=== PATIENT | male | born 1990 | race Caucasian/White ===

== ENCOUNTER 2017-05-13 07:10 | Inpatient (IN) | payer SELFPAY ==
[~2017-05-13] VITALS: Ht 175.3 cm; Wt 69.9 kg
[2017-05-13] MEDS ORDERED: ONDANSETRON HCL 4MG/2ML VIAL IV STA (08:47)
[2017-05-13] MEDS ORDERED: SODIUM CHLORIDE 0.9% 1,000 ML IV ONE ×3 (08:47→12:55)
[2017-05-13] MEDS ORDERED: KETOROLAC 30MG/ML VIAL IV STA (08:47)
[2017-05-13 08:59] LABS: HEMATOCRIT. 56.4 % (42.0-52.0); MEAN CORPUSCULAR HEMOGLOBIN 30.2 pg (28.0-32.0); MEAN CORPUSCULAR VOLUME 89.6 fL (80.0-94.0); PLATELET 528 x1000/uL (130-400); RED BLOOD CELL COUNT 6.29 mill/uL (4.7-6.1); RED CELL DISTRIBUTION WIDTH 13.5 % (11.6-14.6)
[2017-05-13 09:14] LABS: PLATELET ESTIMATE INCREASED
[2017-05-13 09:25] LABS: CARBON DIOXIDE 22 mEq/L (21-32); CHLORIDE 95 mEq/L (98-107); ETHANOL BLOOD < 10 mg/dL
[2017-05-13] MEDS ORDERED: METOCLOPRAMIDE HCL 10MG/2ML VIAL IV ONE (09:30)
[2017-05-13] MEDS ORDERED: FAMOTIDINE 20MG/2ML VIAL IV ONE (09:30)
[2017-05-13 12:22] LABS: CLARITY URINE CLEAR (CLEAR); COLOR URINE STRAW (YELLOW); KETONES URINE NEGATIVE (NEGATIVE); LEUKOCYTE ESTERASE URINE NEGATIVE (NEGATIVE); NITRITE URINE NEGATIVE (NEGATIVE); OCCULT BLOOD URINE NEGATIVE (NEGATIVE); PROTEIN URINE NEGATIVE (NEGATIVE); UROBILINOGEN URINE 0.2 E.U./dL (0.2-1.0)
[2017-05-13 12:55] LABS: *AMPHETAMINES SCREEN URINE NEGATIVE (NEGATIVE); *BARBITURATES SCREEN URINE NEGATIVE (NEGATIVE); *BENZODIAZEPINES SCREEN URINE NEGATIVE (NEGATIVE); *COCAINE SCREEN URINE NEGATIVE (NEGATIVE); CANNABINOID URINE SCREEN NEGATIVE (NEGATIVE); METHADONE URINE SCREEN NEGATIVE (NEGATIVE); OPIATES URINE SCREEN NEGATIVE (NEGATIVE); PHENCYCLIDINE URINE SCREEN NEGATIVE (NEGATIVE)
[2017-05-13] MEDS ORDERED: DIPHENHYDRAMINE 50MG/ML VIAL IV PRN (13:15)
[2017-05-13] MEDS ORDERED: HYDROCODONE/ACETAMINOPHEN 10/325MG TABLET PO PRN (13:15)
[2017-05-13] MEDS ORDERED: DOCUSATE SODIUM 100MG CAPSULE PO PRN (13:15)
[2017-05-13] MEDS ORDERED: IPRATROPIUM/ALBUTEROL 0.5-3(2.5)MG/3ML NEB INH PRN (13:15)
[2017-05-13] MEDS ORDERED: MAGNESIUM/ALUMINUM HYDROXIDE/SIMETHICONE 30ML UDC PO PRN (13:15)
[2017-05-13] MEDS ORDERED: LORAZEPAM 0.5MG TABLET PO PRN (13:15)
[2017-05-13] MEDS ORDERED: NA PHOS,M-B/NA PHOS,DI-BA ENEMA 118ML PR PRN (13:15)
[2017-05-13] MEDS ORDERED: CLONIDINE 0.1MG TABLET PO PRN (13:15)
[2017-05-13] MEDS ORDERED: ONDANSETRON HCL 4MG/2ML VIAL IV PRN (13:15)
[2017-05-13] MEDS ORDERED: MORPHINE SULFATE 4 MG/ML CPJ (NOT FOR IM USE) IV STA (13:15)
[2017-05-13] MEDS ORDERED: GUAIFENESIN 200MG/10ML SUGAR FREE UDC PO PRN (13:15)
[2017-05-13] MEDS ORDERED: ACETAMINOPHEN 325MG TABLET PO PRN (13:15)
[2017-05-13] MEDS ORDERED: MORPHINE SULFATE 2 MG/ML CPJ (NOT FOR IM USE) IV PRN (13:15)
[2017-05-13 14:45] VITALS: BP 128/86
[2017-05-13 14:49] VITALS: BP 128/84
[2017-05-13] MEDS: PANTOPRAZOLE SODIUM 40 MG/VIAL IV SCH (15:54)
[2017-05-13 16:00] VITALS: BP 148/98
[2017-05-13] MEDS ORDERED: ENOXAPARIN 40MG/0.4ML SYR SUBCUT SCH (16:00)
[2017-05-13 16:30] VITALS: BP 138/83
[2017-05-13] MEDS ORDERED: LEVOFLOXACIN 500MG PREMIX 100 ML IV SCH (17:00)
[2017-05-13] MEDS: SODIUM CHLORIDE 0.45% 1,000 ML IV SCH (17:14)
[2017-05-13] MEDS: METRONIDAZOLE 500 MG PREMIX 100 ML IV SCH (17:15)
[2017-05-13] MEDS: SUCRALFATE 1 G/10 ML UDC PO SCH ×2 (17:15→20:31)
[2017-05-13 18:19] LABS: CARBON DIOXIDE 26 mEq/L (21-32); CHLORIDE 102 mEq/L (98-107)
[2017-05-13 18:22] LABS: TROPONIN I < 0.02 ng/mL (0.00-0.04)
[2017-05-13] MEDS: HYDROMORPHONE HCL/PF 2MG/ML CPJ IM PRN (19:39)
[2017-05-13 19:57] VITALS: BP 108/51
[2017-05-13] MEDS ORDERED: ZOLPIDEM TARTRATE 5MG TABLET PO PRN (22:15)
[2017-05-14] VITALS: BP 122/69
[2017-05-14] MEDS: METRONIDAZOLE 500 MG PREMIX 100 ML IV SCH ×2 (00:12→05:04)
[2017-05-14] MEDS: HYDROMORPHONE HCL/PF 2MG/ML CPJ IM PRN ×3 (00:19→09:41)
[2017-05-14] MEDS: SODIUM CHLORIDE 0.45% 1,000 ML IV SCH ×2 (00:36→09:42)
[2017-05-14 04:00] VITALS: BP 113/64
[2017-05-14] MEDS: SUCRALFATE 1 G/10 ML UDC PO SCH (06:26)
[2017-05-14 07:51] VITALS: BP 91/50
[2017-05-14 07:52] LABS: BASOPHILS % 0.6 % (0.0-2.0); EOSINOPHILS % 0.4 % (0.0-5.0); HEMATOCRIT. 40.8 % (42.0-52.0); LYMPHOCYTES % 22.4 % (20.0-50.0); MEAN CORPUSCULAR HEMOGLOBIN 30.6 pg (28.0-32.0); MEAN CORPUSCULAR VOLUME 89.4 fL (80.0-94.0); MEAN PLATELET VOLUME 7.6 fl (7.4-10.4); MONOCYTES % 8.9 % (2.0-8.0); NEUTROPHILS % 67.7 % (40.0-76.0); PLATELET 345 x1000/uL (130-400); RED BLOOD CELL COUNT 4.57 mill/uL (4.7-6.1); RED CELL DISTRIBUTION WIDTH 13.1 % (11.6-14.6)
[2017-05-14 08:26] LABS: CHLORIDE 103 mEq/L (98-107)
[2017-05-14 08:43] LABS: CARBON DIOXIDE 24 mEq/L (21-32); HDL CHOLESTEROL 61 mg/dL (40-59); LDL CHOLESTEROL 71 mg/dL (5-100)
[2017-05-14] MEDS: PANTOPRAZOLE SODIUM 40 MG/VIAL IV SCH (09:39)
[2017-05-14 09:41] VITALS: BP 118/80
== END 2017-05-14 11:15 | disposition left against medical advice (07) | DRG 249 ==
LOC: ER 07:20 → 6WST 13:12 → EDBEDREQ 13:16 → ENRESERV 13:19 → 6WST 14:25
PROVIDERS: ADMIT Internal Medicine; ATTEND Internal Medicine
DX: K52.9 Noninfective gastroenteritis and colitis, unspecified (principal); N17.0 Acute kidney failure with tubular necrosis; R65.10 Systemic inflammatory response syndrome (SIRS) of non-infectious origin without acute organ dysfunction; E87.1 Hypo-osmolality and hyponatremia; E86.0 Dehydration; Z87.11 Personal history of peptic ulcer disease; E80.6 Other disorders of bilirubin metabolism
CPT/HCPCS: 36415; 74176; 76700; 76770; 80048; 80053; 80061; 80305; 81003; 83690; 84484; 85025; 96361; 96374; 96375; 99285; C9113; G0482; J1170; J1650; J1885; J1956; J2270; J2405; J2765; J3490; J7030